=== PATIENT | male | born 1975 | race Caucasian/White ===

== ENCOUNTER 2019-06-04 07:07 | Outpatient (CLI) | payer OTHER ==
[2019-06-04 12:17] LABS: BASOPHILS # (AUTO) 0.1 10^3/uL (0.0-0.1); BASOPHILS % (AUTO) 1.8 %; EOSINOPHILS # (AUTO) 0.5 10^3/uL (0.0-0.7); EOSINOPHILS % (AUTO) 8.6 %; HGB - HEMOGLOBIN 15.5 g/dL (14.0-18.0); LYMPHOCYTES # (AUTO) 1.6 10^3/uL (1.5-3.5); LYMPHOCYTES % (AUTO) 27.8 %; MEAN CORPUSCULAR HEMOGLOBIN 30.5 pg (27.0-31.0); MEAN CORPUSCULAR HGB CONC 34.8 g/dL (32.0-36.0); MEAN CORPUSCULAR VOLUME 87.6 fL (80.0-94.0); MEAN PLATELET VOLUME 10.7 fL (7.4-11.4); MONOCYTES # (AUTO) 0.5 10^3/uL (0.0-1.0); MONOCYTES % (AUTO) 9.2 %; NEUTROPHILS # (AUTO) 2.9 10^3/uL (1.5-6.6); NEUTROPHILS % (AUTO) 52.2 %; PLT - PLATELET COUNT 213 10^3/uL (130-450); RED BLOOD COUNT 5.09 10^6/uL (4.70-6.10); RED CELL DISTRIBUTION WIDTH 12.3 % (12.0-15.0); WHITE BLOOD COUNT 5.6 x10^3/uL (4.8-10.8)
[2019-06-04 12:37] LABS: ALBUMIN 4.7 g/dL (3.2-5.5); ALBUMIN/GLOBULIN RATIO 1.7 (1.0-2.2); ALKALINE PHOSPHATASE 57 IU/L (42-121); ALT ALANINE AMINOTRANSFERASE 24 IU/L (10-60); AST ASPARTATE AMINOTRANSFERASE 27 IU/L (10-42); BILIRUBIN,TOTAL 0.7 mg/dL (0.2-1.0); BUN - BLOOD UREA NITROGEN 16 mg/dL (6-20); CALCIUM 9.2 mg/dL (8.5-10.3); CARBON DIOXIDE - CO2 25 mmol/L (21-32); CHLORIDE 105 mmol/L (101-111); CHOL/HDL RATIO 8.6 (<5.0); CHOLESTEROL 190 mg/dL; CREATININE 0.9 mg/dL (0.6-1.2); GFR - MDRD 93 (>89); GLUCOSE 132 mg/dL (70-100); HDL CHOLESTEROL 22 mg/dL; SODIUM 138 mmol/L (135-145); TOTAL PROTEIN 7.5 g/dL (6.7-8.2)
[2019-06-04 14:46] LABS: LDL CHOLESTEROL,DIRECT 65 mg/dL
== END 2019-06-04 23:59 | disposition home or self-care (01) ==
LOC: LAB.WCP 07:07
PROVIDERS: ATTEND Nurse Practitioner Family
DX: Z00.00 Encounter for general adult medical examination without abnormal findings (principal)
CPT/HCPCS: 36415; 80053; 80061; 83721; 84443; 85025

== ENCOUNTER → 2019-06-04 | Outpatient (CLI) | payer OTHER ==
[2019-06-09 09:13] LABS: HEMOGLOBIN A1C 0.63 g/dL; HEMOGLOBIN A1C % 5.8 % (4.6-6.2)
== END ==
LOC: LAB.R 08:00
PROVIDERS: ATTEND Nurse Practitioner Family
DX: R73.01 Impaired fasting glucose (principal)
CPT/HCPCS: 83036

== ENCOUNTER 2019-09-03 07:26 | Outpatient (CLI) | payer OTHER ==
[2019-09-03 13:22] LABS: ALBUMIN 4.5 g/dL (3.2-5.5); ALBUMIN/GLOBULIN RATIO 1.5 (1.0-2.2); ALKALINE PHOSPHATASE 59 IU/L (42-121); ALT ALANINE AMINOTRANSFERASE 22 IU/L (10-60); AST ASPARTATE AMINOTRANSFERASE 25 IU/L (10-42); BILIRUBIN,TOTAL 0.9 mg/dL (0.2-1.0); BUN - BLOOD UREA NITROGEN 17 mg/dL (6-20); CALCIUM 9.3 mg/dL (8.5-10.3); CARBON DIOXIDE - CO2 27 mmol/L (21-32); CHLORIDE 105 mmol/L (101-111); CHOL/HDL RATIO 7.7 (<5.0); CHOLESTEROL 185 mg/dL; GLUCOSE 123 mg/dL (70-100); HDL CHOLESTEROL 24 mg/dL; LDL CHOLESTEROL,CALCULATED 85 mg/dL; LDL/HDL RATIO 3.5 (<3.6); SODIUM 140 mmol/L (135-145); TOTAL PROTEIN 7.5 g/dL (6.7-8.2); VLDL CHOLESTEROL 76 mg/dL
== END 2019-09-03 23:59 | disposition home or self-care (01) ==
LOC: LAB.WCP 07:26
PROVIDERS: ATTEND Family Medicine
DX: E78.1 Pure hyperglyceridemia (principal); R73.01 Impaired fasting glucose
CPT/HCPCS: 36415; 80053; 80061; 83721

== ENCOUNTER 2021-05-17 08:00 | Outpatient (CLI) | payer OTHER ==
[2021-05-17 18:38] LABS: BASOPHILS # (AUTO) 0.1 10^3/uL (0.0-0.1); BASOPHILS % (AUTO) 1.7 %; EOSINOPHILS # (AUTO) 0.4 10^3/uL (0.0-0.7); EOSINOPHILS % (AUTO) 7.6 %; LYMPHOCYTES # (AUTO) 1.6 10^3/uL (1.5-3.5); LYMPHOCYTES % (AUTO) 29.5 %; MEAN CORPUSCULAR HEMOGLOBIN 29.9 pg (27.0-31.0); MEAN CORPUSCULAR HGB CONC 34.8 g/dL (32.0-36.0); MEAN CORPUSCULAR VOLUME 85.8 fL (80.0-94.0); MEAN PLATELET VOLUME 10.7 fL (7.4-11.4); MONOCYTES # (AUTO) 0.5 10^3/uL (0.0-1.0); MONOCYTES % (AUTO) 10.3 %; NEUTROPHILS # (AUTO) 2.7 10^3/uL (1.5-6.6); NEUTROPHILS % (AUTO) 50.7 %; PLT - PLATELET COUNT 231 10^3/uL (130-450); RED BLOOD COUNT 5.36 10^6/uL (4.70-6.10); RED CELL DISTRIBUTION WIDTH 12.3 % (12.0-15.0); WHITE BLOOD COUNT 5.3 x10^3/uL (4.8-10.8)
[2021-05-17 18:58] LABS: ALBUMIN 4.9 g/dL (3.2-5.5); ALBUMIN/GLOBULIN RATIO 1.6 (1.0-2.2); ALKALINE PHOSPHATASE 61 IU/L (42-121); ALT ALANINE AMINOTRANSFERASE 27 IU/L (10-60); AST ASPARTATE AMINOTRANSFERASE 31 IU/L (10-42); BUN - BLOOD UREA NITROGEN 14 mg/dL (6-20); CALCIUM 9.5 mg/dL (8.5-10.3); CARBON DIOXIDE - CO2 27 mmol/L (21-32); CHLORIDE 104 mmol/L (101-111); CHOL/HDL RATIO 6.9 (<5.0); CHOLESTEROL 201 mg/dL; CREATININE 0.9 mg/dL (0.6-1.2); GFR - MDRD 92 (>89); GLUCOSE 121 mg/dL (70-100); HDL CHOLESTEROL 29 mg/dL; POTASSIUM 4.1 mmol/L (3.5-5.0); SODIUM 139 mmol/L (135-145); TOTAL PROTEIN 7.9 g/dL (6.7-8.2); TRIGLYCERIDES 448 mg/dL
[2021-05-17 19:08] LABS: THYROID STIMULATING HORMONE 1.96 uIU/mL (0.34-5.60)
[2021-05-17 19:16] LABS: BILIRUBIN,URINE NEGATIVE (NEGATIVE); GLUCOSE, URINE (UA) NEGATIVE (NEGATIVE); KETONES,URINE (UA) NEGATIVE (NEGATIVE); LEUKOCYTE ESTERASE, URINE NEGATIVE (NEGATIVE); NITRITE,URINE NEGATIVE (NEGATIVE); OCCULT BLOOD,URINE SMALL (NEGATIVE); PH,URINE 5.5 PH (5.0-7.5); PROTEIN,URINE NEGATIVE (NEGATIVE); UROBILINOGEN,URINE 0.2 (NORMAL) E.U./dL (NORMAL)
[2021-05-17 19:19] LABS: CLARITY,URINE CLEAR (CLEAR)
[2021-05-17 19:20] LABS: LDL CHOLESTEROL,DIRECT 78 mg/dL; LDLD/HDL RATIO 2.7 (<3.6)
[2021-05-17 19:35] LABS: BACTERIA,URINE None Seen /HPF (None Seen); RBC,URINE 0-5 /HPF (0-5); SQUAMOUS EPITHELIAL CELL,UR NONE SEEN (<= Few); WBC,URINE 0-3 /HPF (0-3)
[2021-05-17 21:10] LABS: ESTIMATED AVERAGE GLUCOSE 108 mg/dL (70-100); HEMOGLOBIN A1c% 5.4 % (4.27-6.07)
== END 2021-05-17 23:59 | disposition home or self-care (01) ==
LOC: LAB.WCP 08:00
PROVIDERS: ATTEND Nurse Practitioner
DX: R73.03 Prediabetes (principal); G47.30 Sleep apnea, unspecified; F32.A Depression, unspecified
CPT/HCPCS: 36415; 80053; 80061; 81001; 83036; 83721; 84443; 85025; 87086

== ENCOUNTER 2023-08-27 15:59 | Outpatient (CLI) | payer BC ==
--- NOTE | 2023-08-27 16:14 | Sleep Patient Instructions ---
Sleep Center Visit Summary - Patient Visit Information Reason for Visit: Initial consult for evaluation of sleep disordered breathing and other sleep issues. - Patient Instructions Instructions Attached: Sleep Study, Sleep Study Home Monitor Additional Instructions: You will be completing a sleep study, either an in-lab polysomnography (PSG) or home sleep study (HST). You will follow-up in the sleep care office after the sleep study is completed to hear the results and talk about therapy, if needed. You will be called by our office staff to schedule this appointment, but you may contact us with any questions. - Clinic Information Contact: [facility] [address] [place] [id number] [email or web address] T: [phone]
--- NOTE | 2023-08-27 16:18 | SLEEP CARE CONSULTATION ---
Information from patient questionnaire entered by Delfino Lucio. I have reviewed and concur with the information entered by Delfino Lucio. This document represents the service I personally performed and the decisions made by me, Lori Mackenzie ARNP. History of Present Illness Service Date and Time: 08/27/2023 1600 Reason for Visit: New patient Chief Complaint: reports: Unrefreshed sleep, Snoring, Observed pauses in breathing, Fatigue Date of Onset: MOST OF ADULT LIFE Usual bedtime: 1506-2994 Time it takes to fall asleep: 1HR Snores at night: Yes Observed to quit breathing while asleep: Yes Sleeps alone due to snoring: Yes Number of times waking at night: 3 Reasons for waking at night: reports: Snoring, Other (UNKNOWN). denies: Choking, Gasping for air Toss, Turn, or Twitch while sleeping: Yes Recalls having dreams: Yes Usually gets out of bed at: M-F 0450 S-S [id number] Feels refreshed in the morning: No Morning headache: Yes (1-3 days a wee, last about an hour) Sleepy or fatigued during the day: Yes Ever fallen asleep while driving: No Takes day naps: No Dreams during day naps: No Prior sleep studies: Yes (sometimes with occasional naps) Additional HPI information: I had the pleasure of seeing OLEGARIO OAKLEY today regarding the possibility of him having a sleep disorder. His current complaints are unrefreshed sleep, snoring, observed pauses in breathing and fatigue. His has encouraged him to come in for evaluation. He says he snores loudly and will stop breathing in his sleep. His has seen these pauses and will wear ear plugs because of the loud snoring. He is concerned with the pauses in breathing. He says the snoring has worsened over time. He says the snoring is worse when he is on his back, but is pretty loud when on his left side. He still snores when on his right side but it is a little reduced. His twin brother has sleep apnea and is using a CPAP machine. He says he is "extremely tired" when wakes up in the morning. He will wake up with a dry mouth and with headaches. 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 Patient is and lives in . Have you smoked in the past 12 months: Yes Cigarettes per day (20/pack): 0 (CURRENTLY VAPE) Years of smokin Smoking Pack Years: 0 Alcohol use: Yes Alcohol amount and frequency: 1 GLASS PER WEEK Caffeine use: Yes Caffeine amount and frequency: 6 CANS PER WEEK Family History Family history of sleep disordered breathing: Yes Family Hx Sleep Apnea: Father: Snoring, Sibling: Snoring, Sleep apnea - Treated Allergies and Home Medications Known drug allergies: No Drug allergies reviewed: Yes Home medication list reviewed: Yes (as listed) Allergy and home medication list: Allergies No Known Drug Allergies Allergy (Verified 08/27/23 15:50) Home Medications Fluoxetine HCl [Prozac] See Rx Instructions .ROUTE .COMPLEX 08/25/23 [History] Review of Systems Weight gain over past 5 years: 7 Cardiovascular: denies: high blood pressure Respiratory: denies: shortness of breath Gastrointestinal: denies: heartburn Urinary: reports: frequency Neurological: denies: headaches Psychiatric: reports: anxiety, depression Ear/Nose/Throat: denies: tonsillectomy, wisdom teeth removed Endocrine: reports: sluggishness Musculoskeletal: reports: neck pain, back pain Physical Exam Vital signs obtained and entered by: DELFINO Madden MA Blood Pressure: 130/90 (LEFT ARM) Cuff size: regular Heart Rate: 73 O2 Saturation: 99 Height: 6 ft Weight: 190 lb 12.8 oz Body Mass Index: 25.9 BMI Classification: Overweight Neck circumference: 15.75 Nostrils: patent to airflow Mouth and throat: narrow oropharynx Soft palate: long Hard palate: normal Uvula: normal Uvula visualization: 25% Mallampati Class III Tongue: enlarged in size with teeth valera on lateral edges Tonsils: 1+ Neck: normal w/o lymphadenopathy or thyromegaly Heart: regular rate and rhythm Lungs: clear bilaterally Impression and Plan 1. Suspected Obstructive Sleep Apnea-Hypopnea Syndrome, as suggested by a history of loud and irregular snoring, observed cessation of breath while asleep, morning headache, unrefreshed sleep, cognitive impairment, and excessive daytime sleepiness. Narrow oropharynx and obesity are common predisposing factors for obstructive sleep apnea-hypopnea syndrome. I recommend proceeding to polysomnography to confirm the diagnosis and to assess severity. If the patient has significant sleep disordered breathing, a manual CPAP titration study will also be performed to find the optimal treatment pressure. I informed the patient of what the sleep studies involve and after some discussion, obtained agreement to proceed. The pathophysiology of obstructive sleep apnea- hypopnea syndrome was discussed with the patient and health risks of cardiovascular and cerebrovascular disease if not treated. 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 Patient agreed to plan. * Schedule polysomnography. * Avoid long distance driving or driving when feeling sleepy. * Avoid alcohol, sedative and muscle relaxant around bedtime. * Maintain healthy weight. * Review instructions provided by trained office staff on how to prepare for the sleep study. * Return for follow-up after sleep study completed. Counseling Topics: Weight control Plan: PSG/HST and follow up Visit Type: In Office Time Spent with Patient (minutes): 26 Provider Statement: I spent 100% of the Face to Face Visit with the patient with greater than 50% spent counseling the patient and coordination of care.
[2023-08-27 16:29] VITALS: BP 130/90; O2SAT 99
== END 2023-08-27 16:00 | disposition home or self-care (01) ==
LOC: SC 15:59
PROVIDERS: ATTEND Nurse Practitioner Family
DX: G47.10 Hypersomnia, unspecified (principal); R06.83 Snoring; R51.9 Headache, unspecified; R06.81 Apnea, not elsewhere classified; G47.8 Other sleep disorders; F17.200 Nicotine dependence, unspecified, uncomplicated
CPT/HCPCS: 99202; 99212

== ENCOUNTER 2023-09-16 21:30 | Emergency (ER) | payer BC ==
[2023-09-16 21:44] VITALS: BP 140/82; O2SAT 99
--- NOTE | 2023-09-16 22:08 | XRAY Report ---
PROCEDURE: Knee 4+V LT INDICATIONS: TWISTED L KNEE/ PAIN +TENDERNESS TECHNIQUE: 4 views of the knee(s) were acquired. COMPARISON: None. FINDINGS: Bones: No displaced fracture or dislocation. Enthesopathy at the patellar tendon insertion. Soft tissues: Possible small joint effusion. Possible prepatellar soft tissue swelling. IMPRESSION: No acute displaced fracture or dislocation. Patellar tendon and insertional enthesopathy. Possible pr epatellar soft tissue swelling and joint effusion. If there is high concern for further derangement, consider MRI evaluation. Reviewed by: Michael Lopez MD on 09/16/2023 10:07 PM PDT Approved by: Michael Lopez MD on 09/16/2023 10:07 PM PDT Station ID: [id number]
--- NOTE | 2023-09-16 22:58 | ED Physician Documentation ---
PD HPI LOWER EXT INJURY - Stated complaint Stated Complaint: L KNEE INJ - Chief complaint Chief Complaint: Ext Problem - History obtained from History obtained from: Patient - Additional information Additional information: HPI from patient. Patient c/o sudden onset left knee pain at approximately 7:30 PM today when he was running up stairs at home and lost his balance. He describes twisting motion of the knee as a result which was associated with the then-onset of the pain. The pain is worse with movement, weight-bearing, and to a lesser extent palpation. No other injury. Review of Systems Musculoskeletal: reports: Joint pain, Joint swelling, Pain with weight bearing. denies: Back pain, Extremity pain, Extremity swelling Neurologic: denies: Focal weakness, Numbness PD PAST MEDICAL HISTORY - Past Medical History Past Medical History: Yes Cardiovascular: None Respiratory: None Neuro: None Endocrine/Autoimmune: None GI: None : None HEENT: None Psych: Depression Musculoskeletal: None Derm: None - Present Medications Home Medications: Ambulatory Orders Medication Instructions Recorded Confirmed Fluoxetine HCl [Prozac] See Rx Instructions .ROUTE .COMPLEX 08/25/23 08/25/23 Oxycodone HCl/Acetaminophen 1 - 2 each PO Q6H PRN #14 tablet 09/16/23 [Percocet 5-325 mg Tablet] - Allergies Allergies/Adverse Reactions: Allergies Allergy/AdvReac Type Severity Reaction Status Date / Time No Known Drug Allergies Allergy Verified 09/16/23 21:36 - Social History Does the pt smoke?: No Smoking Status: Never smoker Does the pt drink ETOH?: No Does the pt have substance abuse?: No - Immunizations Immunizations are current?: Yes - POLST Patient has POLST: No PD ED PE NORMAL - Vitals Vital signs reviewed: Yes - General General: Alert and oriented X 3, No acute distress (NAD at rest, but movement/palpation of knee causes mild/moderate painful distress), Well developed/nourished - Derm Derm: Normal color - Extremities Extremities: No deformity PD ED PE EXPANDED - Extremities Extremities: Tenderness (mild TTP along medial aspect of left knee without crepitus; there is mild swelling anterior aspect of the knee), Limited ROM (limited flexion due to exacerbation of pain), Joint effusion. No: Bruising Results - Vitals Vitals: Oxygen O2 Source Room air - Rads (name of study) left knee xrays Relevant Findings:: Prelim report reviewed, See rad report PD Medical Decision Making - ED course Complexity details: reviewed results, re-evaluated patient, considered differential, d/w patient ED course: left knee xrays without evidence of fracture nor dislocation. Radiologist's reading includes "patellar tendon and insertion enthesopathy. Possible prepatellar soft tissue swelling and joint effusion", and consider MRI if concern for internal derangement. Results d/w patient. He is given 10mg oxycodone in ED (being driven home) and knee immobilizer placed; patient arrived to ED with his own crutches. He is provided a work note and advised to follow up with PCP for reevaluation. Return precautions reviewed. Percocet rx electronically submitted to his pharmacy of choice. Departure - Departure Disposition: Home, Self Care Clinical Impression: Left knee sprain Qualifiers: Encounter type: initial encounter Involved ligament of knee: unspecified ligament Qualified Code(s): S83.92XA - Sprain of unspecified site of left knee, initial encounter Condition: Good Instructions: ED Sprain Knee Prescriptions: Oxycodone HCl/Acetaminophen [Percocet 5-325 mg Tablet] 1 - 2 each PO Q6H PRN #14 tablet PRN Reason: pain Comments: There is no evidence of any fractures nor dislocation on the x-rays of your left knee. The radiologist does note mild swelling around the kneecap as well as the tendon that surrounds the knee cap and where it inserts just below the knee; this is a non-specific finding and is not unusual given your acute injury. Follow-up with your primary care provider in 4 to 5 days if your knee pain persists. Have electronically submitted a prescription for Percocet (narcotic/opiate pain medication) to the [facility] pharmacy in [place]. I am prescribing a short course of narcotic pain medication for you. These are potentially dangerous and addictive medications that should be used carefully. These medications may constipate you. Take an hqih-bxf-pezosvz stool softener (docusate) twice daily with plenty of water while taking these medications. If you go 24 hours without a bowel movement, take kwta-[id number] miralax, per package instructions. Do not drink or drive while taking these medications. If you received narcotic or sedating medications while in the emergency department, do not drive for 24 hours. Store this medication in a safe, secure place and out of reach of children. It is a violation of federal law to give or sell this medication to another person or to use in a manner other than prescribed. The ED will not refill narcotic prescriptions, including prescriptions lost or stolen. To dispose of unwanted medications: 1. [facility] at [address] in [place] has a medication drop box. They accept prescription medications (in pill form) Friday through Friday 9:00 a.m. to 5:00 p.m. 2. The [employer] accepts prescription medications (in pill form only) for disposal year round. Call for more information. 3. Contact the [facility] for the next [employer] sponsored prescription drug collection event. , [phone], or [phone]; Forms: Activity restrictions Discharge Date/Time: 09/16/23 23:26
[2023-09-16] MEDS: oxyCODONE 5 MG TABLET PO STA (23:18)
== END 2023-09-16 23:26 | disposition home or self-care (01) ==
LOC: ED 21:30
DX: S83.92XA Sprain of unspecified site of left knee, initial encounter (principal); X50.1XXA Overexertion from prolonged static or awkward postures, initial encounter
CPT/HCPCS: 73564; 99283; A9270

== ENCOUNTER 2023-09-30 13:29 | Outpatient (CLI) | payer BC ==
--- NOTE | 2023-09-30 21:23 | MRI Report ---
PROCEDURE: Knee LT WO INDICATIONS: INTERNAL DERANGEMENT TECHNIQUE: Noncontrast sagittal PD fast spin echo and T2 fast spin echo with fat saturation, sagittal 3-D gradie nt sequence with fat saturation; coronal T1 spin echo and PD fast spin echo with fat saturation, and axial PD fast spin echo with fat saturation through the knee. COMPARISON: Left knee radiograph dated 09/16/2023. FINDINGS: Image quality: Excellent. Menisci: Peripheral displacement of medial meniscus bowing medial collateral ligament is seen. Obliqu e tear involving posterior horn of medial meniscus is seen extending to inferior articulating surface . Focal vertical tear involving anterior horn of lateral meniscus is seen extending to both superior and inferior articulating surfaces. Cruciate ligaments: There is thickening of proximal anterior cruciate ligament near its femoral inser tion with intrasubstance T2 hyperintense signal. The PCL is intact. Medial structures: The medial collateral ligament appears thickened with surrounding soft tissue teresa ma and intrasubstance T2 hyperintense signal. Visualized portions of the pes anserinus tendons appear normal. No abnormal bursal fluid. Lateral structures: The lateral collateral ligament, long and short heads of the biceps femoris tend on appear thickened. The popliteus tendon appears normal. Iliotibial band appears normal. Anterior structures: The quadriceps and patellar tendons appear intact. Patellar alignment is nimesh l. No femoral trochlear dysplasia or ventral trochlear prominence. No edema in the infrapatellar fa t pad. Bones and cartilage: No bone marrow contusions or fractures. 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 The cartilage in lateral femoral tibial compartm ent and patellofemoral compartment is normal in thickness. Joint space: There is moderate knee joint fluid. No Heath's cyst. Normal appearing synovial plicae are incidentally noted. IMPRESSION: 1. Oblique tear involving posterior horn of medial meniscus extending to inferior articulating surfac e. Focal vertical tear involving anterior horn of lateral meniscus extending to both superior and inf erior articulating surfaces. 2. Sprain/low-grade partial thickness tear involving proximal ACL. No ACL rupture. The PCL is intact. 3. Low to moderate grade MCL sprain/partial thickness tear. Low-grade LCL sprain. Distal biceps femor is tendinosis. 4. 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 No fracture or dislocati on. Moderate joint effusion, no loose bodies. Reviewed by: Syed Rodriguez MD on 09/30/2023 9:21 PM PDT Approved by: Syed Rodriguez MD on 09/30/2023 9:21 PM PDT Station ID: [id number]
== END 2023-09-30 13:30 | disposition home or self-care (01) ==
LOC: DI 13:29
PROVIDERS: ATTEND Physician Assistant Medical
DX: S83.242A Other tear of medial meniscus, current injury, left knee, initial encounter (principal); S83.282A Other tear of lateral meniscus, current injury, left knee, initial encounter; S83.512A Sprain of anterior cruciate ligament of left knee, initial encounter; S83.412A Sprain of medial collateral ligament of left knee, initial encounter; M17.12 Unilateral primary osteoarthritis, left knee; M94.262 Chondromalacia, left knee; M67.922 Unspecified disorder of synovium and tendon, left upper arm; M25.462 Effusion, left knee

== ENCOUNTER 2023-10-28 14:16 | Outpatient (CLI) | payer BC ==
--- NOTE | 2023-10-28 15:16 | Sleep Patient Instructions ---
Sleep Center Visit Summary - Patient Visit Information Reason for Visit: Sleep study follow-up - Patient Instructions Instructions Attached: CPAP Additional Instructions: You are being started on CPAP therapy with pressure setting at 4-15 cmH2O. You will need to call the sleep care office to set up your follow up once you have your CPAP machine to check compliance and response to therapy at that time. You may call the office with any concerns about pressure feeling too low or too much for adjustment, if needed. You should contact DME supplier for any questions or concerns about mask or equipment. Please call office to schedule a follow up appointment in the sleep care office one month after obtaining new device. - Clinic Information Contact: [facility] [address] [place] [address] [email or web address] T: [phone]
--- NOTE | 2023-10-28 15:19 | SLEEP CARE CONSULTATION ---
Information from patient questionnaire entered by Yenifer Lucio. I have reviewed and concur with the information entered by Yenifer Lucio. This document represents the service I personally performed and the decisions made by me, Lori Mackenzie ARNP. History of Present Illness Service Date and Time: 10/28/2023 141 Initial [place] Sleepiness Scale score: 12 (07/18/23) Current [place] Sleepiness Scale score: 14 Additional HPI information: OLEGARIO OAKLEY returns for follow up and results of the recently performed home sleep study. The sleep study done on 10/03/23 showed moderate obstructive sleep apnea with an average AHI of 28.5 and tawnya oxygen saturation of 80%. I explained the pathophysiology behind obstructive sleep apnea. We then spent quite a bit of time discussing different treatment options. For mild obstructive sleep apnea, surgery and oral appliance are alternatives to nasal CPAP therapy but in moderate or severe cases, nasal CPAP is the most effective and reliable treatment. After some discussion, the patient opted to go with the nasal CPAP therapy. Nasal autoCPAP set at 4-15 cmH20 will be ordered with rationale explained. A manual titration study will be ordered if unable to find optimal pressure with office adjustments. I explained how CPAP machine works and what to expect when using the machine. Using CPAP every night in order to get used to it was emphasized. Patient advised to put CPAP mask on before getting into bed so as not to fall asleep without CPAP. To assist acclimation to CPAP use, it could also be used for a short time during day while reading or watching TV. The patient was instructed to call the CPAP supplier to discuss any mechanical problem that may occur. If the mask given is uncomfortable or is difficult to keep on through the night even with adjustment, contact the CPAP supplier as many will replace with another mask style if notified before 30 days. If snoring or perceives is not getting enough air or too much air from the machine, notify this office. Patient does not drink alcohol. Patient was cautioned about risks of drowsy driving until sleepiness symptoms resolve. Patient denies drowsy driving. Sleep Study - Results Type of Sleep Study: Home sleep study (COMPLETED 10/03/23) Prior sleep studies: Yes (sometimes with occasional naps) Polysomnography/Home Sleep Study results: of obstructive sleep apnea in patients with significant comorbid medical conditions that may degrade the accuracy of the test. Physician Impression: The quality of the study is good. The length of the study is adequate (> 240 minutes). Please also see the tabulated and graphic data. 1. Obstructive Sleep Apnea-Hypopnea (ICD-10 G47.33), moderate, with an AHI of 28.5/hr and tawnya SaO2 of 80%. During the study, the patient had 201 apneas (201 obstructive, 0 central, 0 mixed) and 10 hypopneas. The longest episode lasted 75.0 seconds. The respiratory events occurred more frequently during supine sleep (supine AHI was 46.2 and non-supine, 10.79). 2. Hypoxemia (ICD-10 R09.02), mild, with the lowest oxygen saturation of 80 % and 11.7 minutes with SaO2 under 90%. Baseline oxygen saturation was normal (Average oxygen saturation was 95%). Allergies and Home Medications Known drug allergies: No Drug allergies reviewed: Yes Home medication list reviewed: Yes (Fluoxetine 20 mg daily) Allergy and home medication list: Allergies No Known Drug Allergies Allergy (Verified 10/23/23 09:39) Review of Systems Review of systems same as previous: Yes (no changes) Physical Exam Vital signs obtained and entered by: LORI LEE-C Blood Pressure: 132/94 Cuff size: long (left arm) Heart Rate: 70 O2 Saturation: 100 Height: 6 ft Weight: 190 lb 3.2 oz (with clothes/steel toe boots on) Body Mass Index: 25.7 BMI Classification: Overweight Impression and Plan 1. Obstructive Sleep Apnea-Hypopnea Syndrome, moderate, with lowest oxygen saturation of 80%. Obviously this is the cause of the patients symptoms of unrefreshed sleep, and excessive daytime sleepiness. Positive pressure therapy could benefit anxiety, depression. As mentioned above, the patient will be started on nasal autoCPAP therapy with pressure set at 4-15 cmH2O. A manual titration study will be completed if unable to find optimal treatment pressure with office adjustments. Compliance guidelines also reviewed. A copy of compliance guidelines will be given for reference at check out. Because the apnea is more severe supine, I instructed to avoid sleeping supine using pillow positioning until able to start CPAP use. 2. Hypoxemia, mild, with a tawnya oxygen saturation of 80% and 11.7 minutes spent under 90%. The baseline oxygen saturation was normal with an average oxygen saturation of 95%. * Nasal auto CPAP therapy, pressure at 4-15 cm H2O. * Avoid alcohol consumption near bedtime. * Avoid supine sleep until using CPAP. * The patient is again cautioned about driving until sleepiness completely resolves. * Return one month after CPAP obtained. I will assess response to therapy and compliance at that time. Counseling Topics: Sleeping position Prescriptions: Auto CPAP Plan: start CPAP and compliance follow up Visit Type: In Office Time Spent with Patient (minutes): 21 Provider Statement: I spent 100% of the Face to Face Visit with the patient with greater than 50% spent counseling the patient and coordination of care.
[2023-10-28 15:21] VITALS: BP 132/94; O2SAT 100
== END 2023-10-28 14:17 | disposition home or self-care (01) ==
LOC: SC 14:16
PROVIDERS: ATTEND Nurse Practitioner Family
DX: G47.33 Obstructive sleep apnea (adult) (pediatric) (principal); R09.02 Hypoxemia; E66.3 Overweight; Z68.25 Body mass index [BMI] 25.0-25.9, adult
CPT/HCPCS: 99212; 99213

== ENCOUNTER 2023-12-31 15:35 | Outpatient (CLI) | payer BC ==
--- NOTE | 2023-12-31 16:31 | Sleep Patient Instructions ---
Sleep Center Visit Summary - Patient Visit Information Reason for Visit: First compliance with CPAP therapy - Patient Instructions Additional Instructions: You were here for follow up of CPAP therapy. You will be continued on CPAP therapy with pressure at 6-9 cmH2O. Please let us know if the pressure change is uncomfortable and we can make further adjustments of the pressure. You should follow up with sleep care in 1-2 months. You may contact us sooner for any questions or concerns. - Clinic Information Contact: [facility] [address] [place] [id number] [email or web address] T: [phone]
--- NOTE | 2023-12-31 16:38 | SLEEP CARE CONSULTATION ---
Information from patient questionnaire entered by Delfino Lucio. I have reviewed and concur with the information entered by Delfino Lucio. This document represents the service I personally performed and the decisions made by , Lori Mackenzie ARNP. History of Present Illness Service Date and Time: 12/31/2023 1535 Previous diagnosis: Moderate, Obstructive Sleep Apnea-Hypopnea Syndrome AHI: 28.5 (10/03/23) Reason for follow up: first compliance Equipment type: CPAP (RESMED Airsense 11 S/U 11/10/23) Equipment obtained from: Other ([facility], getting supplies) Mask style: Nasal Mask brand: Resmed (N20) Backup mask available: No Last cushion change: 3 weeks Prior sleep studies: Yes (sometimes with occasional naps) Type of Sleep Study: Home sleep study (COMPLETED 10/03/23) HPI additional information: OLEGARIO OAKLEY was diagnosed to have moderate, AHI 29.5, obstructive sleep apnea- hypopnea syndrome and returned today for CPAP therapy first compliance follow- up. Sleep Study - Results Type of Sleep Study: Home sleep study (COMPLETED 10/03/23) Prior sleep studies: Yes (sometimes with occasional naps) CPAP Compliance Data - Data Reviewed with Patient Average duration of nightly device use: 5 HRS 1 MIN Compliance rate %: 90 (11/10/23-12/09/23; 27/30 days used) Current pressure setting (cmH2O): 4-15 (median 6.8, avg 9.6 max 10.8) Average residual AHI: 5.7 Central apnea: 3.6 Obstructive apnea: 1.5 Hypopnea: 0.5 Average large leak: 0 L/min Subjective Missed days of use due to: reports: travel Patient concerns: reports: other (CHEST TIGHTNESS) Initial [place] Sleepiness Scale score: 12 (07/18/23) Current [place] Sleepiness Scale score: 7 (12/31/23) Allergies and Home Medications Known drug allergies: No Drug allergies reviewed: Yes Home medication list reviewed: Yes (no changes) Allergy and home medication list: Allergies No Known Drug Allergies Allergy (Verified 12/31/23 15:39) Review of Systems Review of systems same as previous: No (LEFT KNEE MENISCUS REPAIR 11/2023) Physical Exam Vital signs obtained and entered by: DELFINO Madden MA Blood Pressure: 123/82 (RIGHT ARM) Cuff size: regular Heart Rate: 72 O2 Saturation: 98 Height: 6 ft Weight: 185 lb Body Mass Index: 25.0 BMI Classification: Overweight Impression and Plan 1. Obstructive Sleep Apnea-Hypopnea Syndrome, moderate, with good treatment compliance and fair apnea control with minimal elevation of residual AHI. On CPAP therapy, the patient has better sleep quality and is more rested overall. Patient has had significant improvement of his sleep apnea however he is having minimal elevation of his residual AHI at 5.7. The patients pressure will be changed to autoCPAP 6-9 cmH20 for elevation of residual AHI. Patient advised to contact me if pressure change is uncomfortable so that it can be adjusted. Goals for apnea control discussed. Patient's apnea severity and rationale for treatment to reduce apnea, improve sleep quality and reduce cardiovascular and cerebrovascular events was reviewed. I also reviewed the benefit of consistent device use of CPAP for depression/anxiety. * Change auto CPAP pressure to 6-9 cmH2O * Notify me if snoring with mask or feeling that the pressure is too much or too little * Maintain healthy weight with BMI at 25 today * Call this office if any problems using CPAP * Return for follow up in 1-2 months, or sooner if concerns arise Adjust device pressure to (cmH2O): 6-9 Counseling Topics: Spare mask Follow up with Sleep Care in: 1-2 months Visit Type: In Office Time Spent with Patient (minutes): 20 Provider Statement: I spent 100% of the Face to Face Visit with the patient with greater than 50% spent counseling the patient and coordination of care.
[2023-12-31 16:56] VITALS: BP 123/82; O2SAT 98
== END 2023-12-31 15:36 | disposition home or self-care (01) ==
LOC: SC 15:35
PROVIDERS: ATTEND Nurse Practitioner Family
DX: G47.33 Obstructive sleep apnea (adult) (pediatric) (principal); E66.3 Overweight; Z68.25 Body mass index [BMI] 25.0-25.9, adult
CPT/HCPCS: 99212; 99213